=== PATIENT | male | born 1985 | race African-American/Black ===

== ENCOUNTER 2021-12-16 01:47 | Day surgery (SDC) | payer OTHER, SELFPAY ==
[2021-12-01 14:51] VITALS: BMI 39.4
[2021-12-16 08:08] VITALS: BP 137/94; PULSE 77; RESP 18; TEMP 36.5; O2SAT 100; BMI 39.3
--- NOTE | 2021-12-16 08:29 | WPDANESEPPF ---
Anes - Initial Pre Proc Eval Procedure: Operation Date: 12/16/21 09:30 Proposed Procedures p Esophagogastroduodenoscopy & Colonoscopy - Tucker Troy MD Date/Time: 12/16/21 08:29 Surgeon: Tucker Troy MD Pre Op Diagnosis: GERD, Melena Patient Data Age: 36 Gender: M Height: 1.83 m Weight: 131.6 kg Last Vital Signs Temp 97.7 F 12/16/21 08:08 Pulse 77 12/16/21 08:08 Resp 18 12/16/21 08:08 BP 137/94 H 12/16/21 08:08 Pulse Ox 100 12/16/21 08:08 O2 Del Method Room Air 12/16/21 08:08 Allergies Allergy/AdvReac Type Severity Reaction Status Date / Time oxycodone [From OxyContin] Allergy Severe rash Verified 12/16/21 08:20 acetaminophen [From Percocet] Allergy Rash Verified 12/16/21 08:20 Home Medications Medication Instructions Recorded Confirmed Type hydrocortisone 2.5 % topical cream 1 applic RECTAL QHS #30 grams 11/04/21 12/16/21 Rx with perineal applicator (Anusol-HC) ibuprofen 200 mg capsule (Motrin 200 mg PO Q6H 11/04/21 12/16/21 History IB) omeprazole magnesium 10 mg oral 10 mg PO DAILY 11/04/21 12/16/21 History suspension,delayed release (Prilosec) Patient hx anesthesia problems: none Family hx anesthesia problems: none Results Review: All pre-operative results and documents have been reviewed as part of the pre-operative evaluation. [facility] Past Medical History Medical History (Updated 12/16/21 @ 08:56 by Tucker Troy MD) Hematochezia Family History Family History (Updated 11/04/21 @ 13:22 by Alyssa Contreras MA) Mother Heart disease Hypertension Diabetes mellitus Grandparent Colon cancer Social History Social History (Updated 11/04/21 @ 13:32 by Alyssa Contreras MA) Smoking status: Never smoker Second hand tobacco smoke exposure: No Alcohol intake: unknown Substance use: never Anes - Eval Final PreProcedure Day of Procedure 12/16/21 08:29 Patient weight: morbidly obese Heart: regular rate and rhythm Lungs: clear to auscultation Airway: Mallampati scale class II Neurological: alert and oriented Last oral intake: >/= 8 hours ASA classification: III Emergent: no Anesthetic plan: proceed Anesthesia type and monitoring: general GIVS and standard monitoring Results Review: All pre-operative results and documents have been reviewed as part of the pre-operative evaluation. Informed Consent: The patient's anesthetic plan and its attendant risks and benefits were discussed with the patient/family/POA. Questions were solicited and answers provided to the satisfaction of the patient/family/POA.
[2021-12-16] MEDS: LACTATED RINGERS 1,000 ML 150 ML IV CONT (08:33)
--- NOTE | 2021-12-16 08:55 | PM.HPGS ---
History of Present Illness History of Present Illness Consent: Risks, benefits, and alternatives have been discussed and questions answered. Patient agrees to proceed with procedure. Chief complaint: GERD, Melena Narrative: Tom Ga is a 36 year old male with intermittent hematochezia, also gerd but better with omeprazole otc. Never had scopes. Review of Systems Constitutional: Constitutional: Denies headache(s) and Denies weakness Eyes: Eyes: Denies blurry vision ENT: Reports Normal hearing present, Denies headache(s) and Denies neck pain Cardiovascular: Cardiovascular: Denies chest pain and Denies dyspnea Respiratory: Respiratory: Denies dyspnea Gastrointestinal: Gastrointestinal: Reports no additional gastrointestinal complaints Genitourinary: Genitourinary: Denies dysuria Musculoskeletal: Musculoskeletal: Denies neck pain Integumentary/Breasts: Skin/Breast: Denies dry skin Neurologic: Reports Normal hearing present, Denies headache(s) and Denies weakness Psychiatric: Psychiatric: Denies anxiety Endocrine: Endocrine: Denies change in body appearance Hematologic/Lymphatic: Hematologic/Lymphatic: Denies easy bleeding Allergic/Immunologic: Allergic/Immunologic: Denies urticaria PMFSH Past Medical History Medical History (Updated 12/16/21 @ 08:56 by Tucker Troy MD) Hematochezia Family History Family History (Updated 11/04/21 @ 13:22 by Alyssa Contreras MA) Mother Heart disease Hypertension Diabetes mellitus Grandparent Colon cancer Social History Social History (Updated 11/04/21 @ 13:32 by Alyssa Contreras MA) Smoking status: Never smoker Second hand tobacco smoke exposure: No Alcohol intake: unknown Substance use: never Meds Home Medications and Allergies Home Medications Medication Instructions Recorded Confirmed Type hydrocortisone 2.5 % topical cream 1 applic RECTAL QHS #30 grams 11/04/21 12/16/21 Rx with perineal applicator (Anusol-HC) ibuprofen 200 mg capsule (Motrin 200 mg PO Q6H 11/04/21 12/16/21 History IB) omeprazole magnesium 10 mg oral 10 mg PO DAILY 11/04/21 12/16/21 History suspension,delayed release (Prilosec) Allergies Allergy/AdvReac Type Severity Reaction Status Date / Time oxycodone [From OxyContin] Allergy Severe rash Verified 12/16/21 08:20 acetaminophen [From Percocet] Allergy Rash Verified 12/16/21 08:20 Vital Signs Vital Signs - 24 hr 12/16/21 08:08 Temperature 97.7 F Pulse Rate 77 Respiratory Rate 18 Blood Pressure 137/94 H Pulse Oximetry 100 Oxygen Delivery Room Air Exam Const: General: comfortable and no acute distress HENMT: General nose exam: Normal nares present Eyes: General: appearance normal, both eyes and all related structures Neck: Neck: no JVD Resp: Auscultation: clear to auscultation bilaterally Cardio: Rate: regular rate Rhythm: regular rhythm GI: Inspection: non-distended GI Palp: Yes Soft to palpation Skin: General skin exam: normal color Neuro: General: gait normal Speech: normal speech Extrem: General: normal to inspection Psych: Mental Status: mental status grossly normal Assessment and Plan Assessment and plan (1) Acid reflux: Code(s): K21.9 - Gastro-esophageal reflux disease without esophagitis Status: Acute Assessment and Plan: egd with bx on ppi and doing ok (2) Hematochezia: Code(s): K92.1 - Melena Status: Acute Assessment and Plan: will assess with colonoscopy
[2021-12-16] MEDS: BENZOCAINE (*SP) 60 ML SPRAY CAN (HURRICAINE) 1 SPRAY MUCOUS MEM (09:04)
--- NOTE | 2021-12-16 09:17 | SUR.OPER ---
EGD ENDED AT 908, COLONOSCOPY BEGAN AT 912.
[2021-12-16 09:29] VITALS: BP 151/85; PULSE 99; RESP 18; O2SAT 97
[2021-12-16 09:39] VITALS: BP 153/92; PULSE 98; RESP 18; O2SAT 99
[2021-12-16 09:49] VITALS: BP 157/107; PULSE 86; RESP 18; O2SAT 100
== END 2021-12-16 09:59 | disposition home or self-care (01) ==
PROVIDERS: PCP Nurse Practitioner Family; Visit Provider Internal Medicine Gastroenterology
PROC: 0DJ08ZZ Inspection of Upper Intestinal Tract, Via Natural or Artificial Opening Endoscopic (ICD-10-PCS; CPT 43235; principal; 2021-12-16 09:30)
DX: Z12.11 Encounter for screening for malignant neoplasm of colon (principal); K92.1 Melena; K64.8 Other hemorrhoids; K21.9 Gastro-esophageal reflux disease without esophagitis; K29.70 Gastritis, unspecified, without bleeding; B96.81 Helicobacter pylori [H. pylori] as the cause of diseases classified elsewhere; E66.01 Morbid (severe) obesity due to excess calories; Z68.39 Body mass index [BMI] 39.0-39.9, adult
CPT/HCPCS: 43239; 45378; 88305; J2704; J7120